=== PATIENT | male | born 1970 | race Caucasian/White ===

== ENCOUNTER 2020-01-03 09:04 | Emergency (ER) | payer OTHER, SELFPAY ==
--- NOTE | ~2020-01-03 | US_ITS ---
EXAMINATION: US venous doppler LE RT DATE: 01/03/2020 11:17 INDICATION: Right lower limb pain and swelling TECHNIQUE: Martinez scale images without and with compression and Doppler images of the right lower extre mity veins were obtained. COMPARISON: None FINDINGS: The right common femoral vein, profunda femoral vein, femoral vein, popliteal vein, peronea l trunk, posterior tibial veins, and greater saphenous vein are patent. IMPRESSION: 1. Patent right lower extremity veins. No evidence of deep venous thrombosis. Reviewed, dictated and finalized at location B.
--- NOTE | ~2020-01-03 | XR_ITS ---
XR ankle RT min 3V DATE: 01/03/2020 10:43 INDICATION: Right ankle pain. No injury. TECHNIQUE: 4 views COMPARISON: None FINDINGS: No fracture or dislocation of the ankle or disruption of the ankle mortise. There is osteo arthritis at the tibiotalar joint. 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
[2020-01-03 09:18] VITALS: BP 126/86; PULSE 96; RESP 12; TEMP 36.9; O2SAT 99
--- NOTE | 2020-01-03 10:13 | ED.LOWEXIN ---
HPI - Extremity Injury (Lower) General Chief Complaint: Extremity Injury, Lower Stated Complaint: right leg pain Time Seen by Provider: 01/03/20 09:15 Source: patient Mode of arrival: ambulatory Limitations: no limitations History of Present Illness HPI Narrative: This patient is a 49 year old male who presents for evaluation of right ankle pain. He states he developed right ankle pain. He states he woke up with pain 4 days ago. His pain is worse with walking. He denies any injury to his ankle. He states when he walks pain shoots up his leg. He denies chest pain, sob, nausea, vomiting or fever. complaint: ankle injury Related Data Home Medications Medication Instructions Recorded Confirmed No Home Medications 01/03/20 01/03/20 Allergies Allergy/AdvReac Type Severity Reaction Status Date / Time poison oak extract Allergy Unknown Unknown Verified 01/03/20 09:21 Review of Systems Review of Systems: All systems reviewed & are unremarkable except as noted in HPI and below PMFSH Past Medical History Medical History (Updated 01/03/20 @ 19:05 by Aurora Olvera MD) Patient denies medical problems Surgical History Surgical History (Updated 01/03/20 @ 10:15 by Aurora Olvera MD) Hx of appendectomy Social History Social History Smoking status: Current every day smoker Alcohol intake: never Gender identity (if verbalized by the patient): Male Exam Const: General: alert Orientation/consciousness: patient oriented x3 Other: mild distress due to pain HENMT: Head: normocephalic and atraumatic Face and sinus: face symmetric Eyes: EOM: EOMs intact bilaterally Resp: Effort & Inspection: normal respiratory effort and no retractions Auscultation: clear to auscultation bilaterally Cardio: Rate: regular rate Rhythm: regular rhythm Heart sounds: no murmurs Back/Spine/Pelvis: Back: no CVA tenderness Skin: General skin exam: normal color Rashes: no rashes Neuro: General: patient oriented x3 and moves all extremities Extrem: Other: right foot and ankle with mild swelling, no erythema, TTP ankle, strong pedal pulses. Course Reevaluation(s) Reevaluation #1: Patient left ER before I could discuss plan and management . Vital Signs Vital signs: Vital Signs Temperature 98.5 F 01/03/20 09:18 Pulse Rate 96 09/08/20 09:18 Respiratory Rate 12 01/03/20 09:18 Blood Pressure 126/86 01/03/20 09:18 Pulse Oximetry 99 01/03/20 09:18 Temperature 98.5 F 01/03/20 09:18 Pulse Rate 59 L 01/03/20 12:36 Respiratory Rate 12 01/03/20 12:36 Blood Pressure 115/54 L 01/03/20 12:36 Pulse Oximetry 99 01/03/20 12:36 MDM - Extremity Injury (Lower) Lab Data Result diagrams: 01/03/20 10:21 01/03/20 10:21 Labs: Lab Results 01/03/20 01/03/20 01/03/20 Range/Units 10:21 10:21 10:21 WBC 7.0 (4.5-10.0) K/mm3 RBC 4.23 L (4.6-6.20) M/mm3 Hgb 11.6 L (14.0-18.0) g/dL Hct 36.0 L (42.0-52.0) % MCV 85.1 (80-100) fl MCH 27.4 (26-34) pg MCHC 32.2 (32-36) g/dl RDW 15.8 H (11.5-14.5) % Plt Count 179 (150-375) k/mm3 MPV 10.3 (7.4-10.4) fl Immature Gran % (Auto) 0.3 (0-0.5) % Neut % (Auto) 61.5 (45.5-73.1) % Lymph % (Auto) 23.8 (18.3-44.2) % [place] % (Auto) 10.2 H (2.6-8.5) % Eos % (Auto) 3.8 (0-4.4) % Baso % (Auto) 0.4 (0.2-1.2) % Lymph # (Auto) 1.67 (0.9-3.2) K/mm3 [place] # (Auto) 0.7 H (0.1-0.6) K/mm3 Eos # (Auto) 0.3 (0-0.3) K/mm3 Baso # (Auto) 0.0 (0.0-0.1) K/mm3 Abs Immat Gran (auto) 0.02 (0.00-0.031) K/mm3 Absolute Neuts (auto) 4.3 (1.3-6.7) K/mm3 Absolute Nucleated RBC 0.0 (0.0-0.012) K/mm3 Nucleated RBC % 0.0 (0.0-0.2) % PT 13.6 (11.1-14.7) Seconds INR 1.1 APTT 31.5 (22.3-36.8) SECONDS Sodium 139 (137-145) mmol/L Potassium 4.0 (3.4-5.0) mmol/L Chloride 104 (98-107) mmol/L Carbon Dioxid
[2020-01-03] MEDS: IBUPROFEN 600 MG TABLET PO (10:15)
[2020-01-03 10:32] LABS: Basophils Percent Auto 0.4 % (0.2-1.2); Eosinophils Absolute Auto 0.3 K/mm3 (0-0.3); Eosinophils Percent Auto 3.8 % (0-4.4); Hemoglobin 11.6 g/dL (14.0-18.0); Immature Granulocyte Absolute 0.02 K/mm3 (0.00-0.031); Immature Granulocyte Percent A 0.3 % (0-0.5); Lymphocytes Absolute Auto 1.67 K/mm3 (0.9-3.2); Lymphocytes Percent Auto 23.8 % (18.3-44.2); Mean Corpuscular HGB Conc 32.2 g/dl (32-36); Mean Corpuscular Hemoglobin 27.4 pg (26-34); Mean Corpuscular Volume 85.1 fl (80-100); Mean Platelet Volume 10.3 fl (7.4-10.4); Monocytes Absolute Auto 0.7 K/mm3 (0.1-0.6); Monocytes Percent Auto 10.2 % (2.6-8.5); Neutrophils Absolute Auto 4.3 K/mm3 (1.3-6.7); Neutrophils Percent Auto 61.5 % (45.5-73.1); Platelet Count Result 179 k/mm3 (150-375); Red Blood Count 4.23 M/mm3 (4.6-6.20); Red Cell Distribution Width 15.8 % (11.5-14.5)
[2020-01-03 10:41] LABS: INR 1.1; Prothrombin Time 13.6 Seconds (11.1-14.7)
[2020-01-03 10:42] LABS: Partial Thromboplastin Time 31.5 SECONDS (22.3-36.8)
[2020-01-03 11:00] LABS: Alanine Aminotransferase 33 U/L (4-50); Albumin Level 3.4 g/dL (3.5-5.1); Alkaline Phosphatase 85 U/L (38-126); Anion Gap 7 mmol/L (8-16); Aspartate Amino Transferase 25 U/L (17-59); Bilirubin,Total 0.2 mg/dL (0.2-1.3); Blood Urea Nitrogen 18 mg/dL (9-20); Calcium 8.6 mg/dL (8.4-10.2); Carbon Dioxide 28 mmol/L (22-30); Chloride 104 mmol/L (98-107); Estimated CRCL calculation 108 ml/min; Estimated Glomerular Filt Rate > 60; Glucose 127 mg/dL (75-110); Sodium 139 mmol/L (137-145)
[2020-01-03 12:36] VITALS: BP 115/54; PULSE 59; RESP 12; O2SAT 99
== END 2020-01-03 13:02 | disposition left against medical advice (07) ==
LOC: ANHED 09:58
PROVIDERS: Emergency Provider General Practice
DX: M25.571 Pain in right ankle and joints of right foot (principal); F17.200 Nicotine dependence, unspecified, uncomplicated
CPT/HCPCS: 36415; 73610; 80053; 85025; 85610; 85730; 86140; 93971; 99284; A9270

== ENCOUNTER 2021-03-16 15:10 | Emergency (ER) | payer OTHER, SELFPAY ==
[2021-03-16 15:32] VITALS: BP 147/106; PULSE 91; RESP 16; TEMP 36.4; O2SAT 97
[2021-03-16 17:31] VITALS: BP 151/108; PULSE 93; RESP 18; TEMP 36.6; O2SAT 100
--- NOTE | 2021-03-16 17:45 | ED.DENTAL ---
HPI - Dental/Oral General Chief complaint: Dental/Oral Stated complaint: tooth pain Time Seen by Provider: 03/16/21 17:36 Source: patient Mode of arrival: ambulatory Limitations: no limitations History of Present Illness HPI Narrative: This is a 51-year-old male who presents to the emergency department for dentalgia. Reports he has a tooth that has been bothering him over the last couple of months. He attempted to pull it himself but was unsuccessful. He was unable to afford the dentist. Presents today for worsening pain. Denies fevers. MD Complaint: tooth pain Location: Tooth # (3) Related Data Allergies Allergy/AdvReac Type Severity Reaction Status Date / Time poison oak extract Allergy Unknown Unknown Verified 03/16/21 17:32 Review of Systems Review of Systems: CONSTITUTIONAL: Denies fever ENT: Reports dentalgia All systems reviewed & are unremarkable except as noted in HPI and below PMFSH Past Medical History Medical History (Updated 03/16/21 @ 17:46 by Winnie Al PA-C) Patient denies medical problems Surgical History Surgical History (Updated 01/03/20 @ 10:15 by Aurora Olvera MD) Hx of appendectomy Social History Social History Smoking status: Current every day smoker Alcohol intake: never Gender identity (if verbalized by the patient): Male Exam Narrative: GENERAL: Well-appearing, well-nourished, and in no acute distress. HEAD: Normocephalic, atraumatic. EYES: EOMI. ENT: Nares clear, no rhinorrhea or epistaxis. Mucous membranes moist. Oropharynx without tonsillar hypertrophy exudate or other lesions. Poor dentition. Tooth #3 is cracked and loose, no surrounding edema or fluctuance to suggest abscess NECK: Supple. No adenopathy or masses. CHEST: Clear to auscultation. No respiratory distress. No wheezes rales or rhonchi HEART: Regular rate and rhythm. No murmur heard. Normal peripheral pulses. EXTREMITIES: Normal range of motion. No edema. SKIN: Warm, dry, no rash. NEURO: No focal deficits. Alert and oriented x3. PSYCH: Normal mood and affect Course Vital Signs Vital signs: Vital Signs Temperature 97.6 F 03/16/21 15:32 Pulse Rate 91 03/16/21 15:32 Respiratory Rate 16 03/16/21 15:32 Blood Pressure 147/106 H 11/20/21 15:32 Pulse Oximetry 97 03/16/21 15:32 Temperature 98 F 03/16/21 17:31 Pulse Rate 93 03/16/21 17:31 Respiratory Rate 18 03/16/21 17:31 Blood Pressure 151/108 H 03/16/21 17:31 Pulse Oximetry 100 03/16/21 17:31 MDM - Dental/Oral MDM Narrative Medical decision making narrative: Patient presents emergency department for dentalgia. He is afebrile and nontoxic-appearing. There is no surrounding erythema or fluctuance to suggest abscess. Patient will be started on oral antibiotics and was instructed to follow-up with a dentist. He was given warnings to return to the ER Discharge Plan Discharge Clinical Impression: Toothache Patient Disposition: Home, Self-Care Condition: Stable Instructions: Antibiotic Form, Toothache (ED) Additional Instructions: Return to the Emergency Department if you experience fever >101, increasing swelling and redness of your tooth, or any other symptoms that are concerning to you Take antibiotic as prescribed. Tylenol or Ibuprofen as needed for pain. You can apply a dab of clove oil to a Qtip and apply to the tooth to help numb the area Follow up with a dentist. Dr. Kush Pope at [facility] if needed Prescriptions: New amoxicillin-pot clavulanate 875-125 mg tablet 1 tablet PO Q12H 7 Days Qty: 14 RF: 0 Follow-up/Referrals: PHYSICIAN,[employer] CURATOR [Primary Care Provider] -
[2021-03-16 19:10] VITALS: BP 147/100; PULSE 77; RESP 16; O2SAT 98
== END 2021-03-16 19:12 | disposition home or self-care (01) ==
PROVIDERS: Emergency Provider Emergency Medicine
DX: K08.89 Other specified disorders of teeth and supporting structures (principal); F17.200 Nicotine dependence, unspecified, uncomplicated
CPT/HCPCS: 99283